=== PATIENT | female | born 1990 | race Caucasian/White ===

== ENCOUNTER 2016-11-18 17:43 | Emergency (ER) | payer OTHER ==
[~2016-11-18] VITALS: Ht 165.1 cm; Wt 72.6 kg
[~2016-11-18 17:43] MED LIST: ATARAX25 MG PO; BACTRIM DS 8001 TA1 PO; BENADRYL50 MG PO; BENTYL10 MG PO; ELIMITE 5%60 GM PO; FLAGYL 500 MG500 MG IV; FLAGYL500 MG PO; KEFLEX500 M1 PO; MEDROL DOSEPAK4 MG PO; MIRALAX POWDER17 G1 PO; NKHM; PYRIDIUM100 MG PO; TORADOL10 MG PO; VIBRAMYCIN100 MG PO; VICODIN 5/500 505 MG PO
[2016-11-18] MEDS ORDERED: VIVITROL380 MG IM (17:51)
[2016-11-18 18:41] LABS: BILIRUBIN NEGATIVE (NEGATIVE); BLOOD NEGATIVE (NEGATIVE); CLARITY CLEAR (CLEAR); COLOR YELLOW (YELLOW); GLUCOSE NEGATIVE (NEGATIVE); KETONE TRACE (NEGATIVE); LEUKO ESTERASE NEGATIVE (NEGATIVE); NITRITE NEGATIVE (NEGATIVE); PH 6.5 (5.0-9.0); PROTEIN NEGATIVE (NEGATIVE)
[2016-11-18 18:54] LABS: BACTERIA TRACE; EPITHELIAL CELLS 15-20; RBC 0-2 rbc/hpf (0-2); URINE REFLEX COMMENT NO (NO); WBC 0-2 wbc/hpf (0-5); YEAST TRACE
== END 2016-11-18 19:00 | disposition home or self-care (01) ==
LOC: ED 17:43
PROVIDERS: Nurse Practitioner Family
DX: Z20.2 Contact with and (suspected) exposure to infections with a predominantly sexual mode of transmission (principal); F17.200 Nicotine dependence, unspecified, uncomplicated; Z98.51 Tubal ligation status

== ENCOUNTER 2017-05-14 14:56 | Emergency (ER) | payer OTHER ==
[~2017-05-14] VITALS: Ht 165.1 cm; Wt 72.6 kg
[~2017-05-14 14:56] MED LIST changes: +VIVITROL380 MG IM
[2017-05-14] MEDS ORDERED: ZOFRAN ODT4 MG SL (15:34)
== END 2017-05-14 15:41 | disposition home or self-care (01) ==
LOC: ED 14:56
DX: R11.2 Nausea with vomiting, unspecified (principal); F17.210 Nicotine dependence, cigarettes, uncomplicated; F10.10 Alcohol abuse, uncomplicated

== ENCOUNTER 2017-08-06 20:37 | Emergency (ER) | payer OTHER ==
[~2017-08-06] VITALS: Ht 165.1 cm; Wt 73.9 kg
[~2017-08-06 20:37] MED LIST changes: +ZOFRAN ODT4 MG SL
[2017-08-06 20:49] LABS: BILIRUBIN NEGATIVE (NEGATIVE); BLOOD NEGATIVE (NEGATIVE); CLARITY SL CLOUDY (CLEAR); COLOR YELLOW (YELLOW); GLUCOSE NEGATIVE (NEGATIVE); KETONE NEGATIVE (NEGATIVE); LEUKO ESTERASE NEGATIVE (NEGATIVE); NITRITE NEGATIVE (NEGATIVE); PH 7.5 (5.0-9.0); SPECIFIC GRAVITY 1.015 (1.005-1.030); UROBILINOGEN 0.2 E.U./dl (0.2-1.0)
[2017-08-06] MEDS ORDERED: FLUCONAZOLE100 MG PO (20:54)
[2017-08-06 21:13] LABS: BACTERIA 1+; EPITHELIAL CELLS TNTC; YEAST TRACE
== END 2017-08-06 21:29 | disposition home or self-care (01) ==
LOC: ED 20:37
PROVIDERS: Nurse Practitioner Family
DX: B37.3 Candidiasis of vulva and vagina (principal); F17.200 Nicotine dependence, unspecified, uncomplicated; Z79.899 Other long term (current) drug therapy

== ENCOUNTER 2017-08-21 07:59 | Emergency (ER) | payer OTHER ==
[~2017-08-21] VITALS: Ht 165.1 cm; Wt 73.9 kg
[~2017-08-21 07:59] MED LIST changes: +FLUCONAZOLE100 MG PO
[2017-08-21 08:51] LABS: BILIRUBIN 1+ (NEGATIVE); BLOOD 3+ (NEGATIVE); CLARITY CLOUDY (CLEAR); COLOR RED (YELLOW); GLUCOSE NEGATIVE (NEGATIVE); KETONE NEGATIVE (NEGATIVE); NITRITE POSITIVE (NEGATIVE); SPECIFIC GRAVITY 1.025 (1.005-1.030)
[2017-08-21 09:03] LABS: LEUKO ESTERASE 1+ (NEGATIVE)
[2017-08-21 09:08] LABS: BACTERIA 2+; EPITHELIAL CELLS 31-40; RBC TNTC rbc/hpf (0-2); WBC 31-40 wbc/hpf (0-5)
[2017-08-21] MEDS ORDERED: PYRIDIUM200 M1 PO (09:43)
[2017-08-21] MEDS ORDERED: LEVAQUIN250 M1 PO (09:43)
[2017-08-21] MEDS ORDERED: VIBRAMYCIN100 MG PO (09:43)
[2017-08-21] MEDS ORDERED: DIFLUCAN150 MG PO (09:43)
== END 2017-08-21 09:48 | disposition home or self-care (01) ==
LOC: ED 07:59
PROVIDERS: Emergency Medicine
DX: N39.0 Urinary tract infection, site not specified (principal); R31.9 Hematuria, unspecified; F17.200 Nicotine dependence, unspecified, uncomplicated; Z98.890 Other specified postprocedural states; Z79.899 Other long term (current) drug therapy; Z98.51 Tubal ligation status

== ENCOUNTER 2018-06-06 15:49 | Emergency (ER) | payer OTHER ==
[~2018-06-06] VITALS: Ht 165.1 cm; Wt 70.3 kg
[~2018-06-06 15:49] MED LIST changes: +DIFLUCAN150 MG PO; +LEVAQUIN250 M1 PO; +PYRIDIUM200 M1 PO
[2018-06-06] MEDS ORDERED: FLAGYL500 MG PO (16:16)
[2018-06-06] MEDS ORDERED: IBUPROFEN600 MG PO (16:27)
[2018-07-31] MEDS ORDERED: FLAGYL500 MG PO (15:17)
== END 2018-06-06 16:59 | disposition home or self-care (01) ==
LOC: ED 15:49
DX: J02.9 Acute pharyngitis, unspecified (principal); Z79.2 Long term (current) use of antibiotics; Z79.899 Other long term (current) drug therapy

== ENCOUNTER 2018-10-13 03:50 | Emergency (ER) | payer OTHER ==
[~2018-10-13] VITALS: Ht 167.6 cm; Wt 77.1 kg
--- NOTE | ~2018-10-13 | EKG ---
[place], [place] ELECTROCARDIOGRAM REPORT NAME: SARANYA MADISON UNIT #: [id number] ROOM: DOCTOR: EPIPHANY DRAFT REPORT BIRTHDATE: [birth year] [facility] Test Date: 2018-10-13 Test Time: 04:11:16 Pat Name: SARANYA MADISON Department: ED Room: 6 Gender: F Enrollment Services Dean: Twila Miles : 1990 Requested By: GILL PEGUERO Order Number: [id number] Reading MD: Erasmo Barreto MD Measurements Intervals [place] Rate: 106 P: 74 [place]: 132 QRS: 85 QRSD: 98 T: 25 QT: 349 QTc: 464 Interpretive Statements Sinus tachycardia Probable left atrial enlargement Left ventricular hypertrophy Baseline wander in lead(s) V4 Electronically Signed On 10-18-2018 9:27:02 PDT by Erasmo Barreto MD CM:EKGRPT:ELECTROCARDIOGRAM REPORT [id number] GILL HA DRAFT REPORT GILL PEGUERO DO
[~2018-10-13 03:50] MED LIST changes: +IBUPROFEN600 MG PO
[2018-10-13 04:15] LABS: BASO # 0.1 10*3/uL (0.0-0.1); BASO % 0.7 % (0.0-1.0); EOS # 0.1 10*3/uL (0.0-0.4); EOS % 1.3 % (1.0-4.0); HEMATOCRIT 37.7 % (37.0-47.0); HEMOGLOBIN 11.9 g/dl (12.0-16.0); LYMPH # 2.2 10*3/uL (1.3-4.4); MEAN CELL VOLUME 92.2 fl (81.0-99.0); MEAN CORPUSCULAR HGB 29.1 pg (27.0-31.0); MEAN CORPUSCULAR HGB CONC 31.6 g/dl (33.0-37.0); MEAN PLATELET VOLUME 9.9 fl (9.6-12.3); MONO # 0.7 10*3/uL (0.1-1.0); MONO % 8.1 % (3.0-9.0); NEUT # 5.3 10*3/uL (2.3-7.9); NEUT % 63.4 % (47.0-73.0); PLATELET COUNT AUTOMATED 397 10*3/uL (130-400); RED BLOOD COUNT 4.09 10*6/uL (4.10-5.10); WHITE BLOOD COUNT 8.3 10*3/uL (4.8-10.8)
[2018-10-13 04:16] LABS: BILIRUBIN 2+ (NEGATIVE); BLOOD 3+ (NEGATIVE); CLARITY CLOUDY (CLEAR); COLOR RED (YELLOW); GLUCOSE TRACE (NEGATIVE); KETONE 1+ (NEGATIVE); NITRITE POSITIVE (NEGATIVE); SPECIFIC GRAVITY 1.015 (1.005-1.030)
[2018-10-13 04:17] LABS: LEUKO ESTERASE 3+ (NEGATIVE)
[2018-10-13 04:23] LABS: RBC TNTC rbc/hpf (0-2)
[2018-10-13 04:31] LABS: URINE AMPHETAMINES < 1000 (1000ng/ml); URINE BARBITURATES < 200 (200ng/ml); URINE BENZODIAZEPINES < 200 (200ng/ml); URINE CANNABINOIDS (THC) > 50 (50ng/ml); URINE COCAINE < 300 (300ng/ml); URINE METHADONE < 300 (300ng/ml); URINE OPIATES < 300 (300ng/ml); URINE PHENCYCLIDINE < 25 (25ng/ml)
[2018-10-13 04:33] LABS: ALBUMIN 3.7 gm/dl (3.1-4.5); ALKALINE PHOSPHATASE 59 U/L (45-117); BUN 10 mg/dl (7-24); CHLORIDE 110 mmol/L (98-107); CREATININE 0.96 mg/dL (0.55-1.02); POTASSIUM 3.5 mmol/L (3.5-5.1); SGOT/AST 22 IU/L (3-35); SGPT/ALT 19 U/L (12-78); SODIUM 145 mmol/L (136-145); TOTAL PROTEIN 7.6 gm/dL (6.4-8.2)
[2018-10-13 04:36] LABS: ACETAMINOPHEN (TYLENOL) < 5.0 ug/ml (10-30); BETA-HCG, QUANT < 1.0 mIU/mL (1-3); TROPONIN I < 0.015 ng/ml (<0.045)
[2018-10-13] MEDS ORDERED: SEPTDS PO (04:46)
== END 2018-10-13 05:07 | disposition home or self-care (01) ==
LOC: ED 03:50
PROVIDERS: Student in an Organized Health Care Education/Training Program
DX: T39.1X1A Poisoning by 4-Aminophenol derivatives, accidental (unintentional), initial encounter (principal); R55 Syncope and collapse; N39.0 Urinary tract infection, site not specified; F10.129 Alcohol abuse with intoxication, unspecified; Z79.899 Other long term (current) drug therapy; Z79.2 Long term (current) use of antibiotics; Y92.89 Other specified places as the place of occurrence of the external cause

== ENCOUNTER 2019-01-10 14:31 | Emergency (ER) | payer OTHER ==
[~2019-01-10] VITALS: Ht 165.1 cm; Wt 72.6 kg
[~2019-01-10 14:31] MED LIST changes: +SEPTDS PO
[2019-01-10 14:48] LABS: BILIRUBIN NEGATIVE (NEGATIVE); BLOOD TRACE-LYSED (NEGATIVE); CLARITY SL CLOUDY (CLEAR); COLOR YELLOW (YELLOW); GLUCOSE NEGATIVE (NEGATIVE); KETONE TRACE (NEGATIVE); LEUKO ESTERASE NEGATIVE (NEGATIVE); NITRITE NEGATIVE (NEGATIVE); SPECIFIC GRAVITY >= 1.030 (1.005-1.030); UROBILINOGEN 0.2 E.U./dl (0.2-1.0)
[2019-01-10 14:55] LABS: RBC 0-2 rbc/hpf (0-2)
[2019-01-10 14:56] LABS: BACTERIA 2+; MUCOUS TRACE
[2019-01-10 15:39] LABS: BASO % 0.2 % (0.0-1.0); EOS % 0.1 % (1.0-4.0); HEMATOCRIT 37.1 % (37.0-47.0); HEMOGLOBIN 11.9 g/dl (12.0-16.0); LYMPH # 1.2 10*3/uL (1.3-4.4); LYMPH % 9.9 % (27.0-41.0); MEAN CORPUSCULAR HGB 29.8 pg (27.0-31.0); MEAN CORPUSCULAR HGB CONC 32.1 g/dl (33.0-37.0); MEAN PLATELET VOLUME 10.1 fl (9.6-12.3); MONO % 7.8 % (3.0-9.0); NEUT # 10.2 10*3/uL (2.3-7.9); NEUT % 81.6 % (47.0-73.0); PLATELET COUNT AUTOMATED 296 10*3/uL (130-400); RED BLOOD COUNT 3.99 10*6/uL (4.10-5.10); RED CELL DISTRI WIDTH 15.6 % (0-14.5); WHITE BLOOD COUNT 12.5 10*3/uL (4.8-10.8)
[2019-01-10 15:54] LABS: ALBUMIN 3.9 gm/dl (3.1-4.5); ALKALINE PHOSPHATASE 53 U/L (45-117); BUN 18 mg/dl (7-24); CHLORIDE 107 mmol/L (98-107); CREATININE 1.25 mg/dL (0.55-1.02); LIPASE 95 U/L (73-393); POTASSIUM 4.1 mmol/L (3.5-5.1); SGOT/AST 17 IU/L (3-35); SGPT/ALT 19 U/L (12-78); SODIUM 138 mmol/L (136-145); TOTAL PROTEIN 7.4 gm/dL (6.4-8.2)
[2019-01-10] MEDS ORDERED: SEPTDS PO (18:41)
[2019-01-10] MEDS ORDERED: IBUPROFEN600 MG PO (18:41)
[2019-01-10] MEDS ORDERED: PYRIDIUM200 M1 PO (18:41)
[2019-01-10] MEDS ORDERED: NORCO 5-325 TA1 EACH PO (18:41)
== END 2019-01-10 19:30 | disposition home or self-care (01) ==
LOC: ED 14:31
PROVIDERS: Internal Medicine; Physician Assistant
DX: N20.0 Calculus of kidney (principal); N39.0 Urinary tract infection, site not specified; F17.200 Nicotine dependence, unspecified, uncomplicated; Z87.442 Personal history of urinary calculi; Z79.899 Other long term (current) drug therapy; Z79.2 Long term (current) use of antibiotics

== ENCOUNTER → 2022-06-27 | Outpatient (CLI) | payer OTHER ==
[~2022-06-27] MED LIST changes: +NORCO 5-325 TA1 EACH PO
== END | disposition home or self-care (01) ==
LOC: LAB 16:48
PROVIDERS: ATTEND Nurse Practitioner Family
DX: D64.9 Anemia, unspecified (principal)